=== PATIENT | female | born 1965 | race American Indian/Alaskan Native ===

== ENCOUNTER 2017-08-10 19:20 | Emergency (ER) | payer MEDICARE ==
[2017-08-10] MEDS ORDERED: ASPIRIN PO ONE (19:49)
[2017-08-10] MEDS ORDERED: ASPIRIN ONE (19:51)
[2017-08-10 20:11] LABS: Basophils % (Auto) 0.7 % (0.0-1.8); Eosinophils # (Auto) 0.4 K/mm3 (0.0-0.4); Eosinophils % (Auto) 7.5 % (0.0-4.3); Hematocrit 41.2 % (30.3-42.9); Hemoglobin 14.2 gm/dl (10.1-14.3); Lymphocytes # (Auto) 2.3 K/mm3 (1.2-5.4); Lymphocytes % (Auto) 38.5 % (13.4-35.0); Mean Corpuscular HGB Conc 34 % (30-34); Mean Corpuscular Hemoglobin 32 pg (28-32); Mean Corpuscular Volume 92 fl (79-97); Monocytes # (Auto) 0.5 K/mm3 (0.0-0.8); Monocytes % (Auto) 7.9 % (0.0-7.3); Platelet Count 283 K/mm3 (140-440); Red Blood Count 4.49 M/mm3 (3.65-5.03); Red Cell Distribution Width 12.8 % (13.2-15.2)
[2017-08-10 20:29] LABS: BUN/Creatinine Ratio 18; Blood Urea Nitrogen 11 mg/dL (7-17); Calcium 8.9 mg/dL (8.4-10.2); Hemolysis Index 14
--- NOTE | 2017-08-11 07:15 | Emergency Department Report ---
ED Chest Pain HPI - General Chief Complaint: Chest Pain Stated Complaint: CP; SOB Time Seen by Provider: 08/11/17 07:13 Source: patient Mode of arrival: Ambulatory Limitations: No Limitations - History of Present Illness Initial Comments: Patient stated that she had pain in her right chest and later pain in her left chest than essentially pain associated with cough and movement. Her pain is nonpleuritic. She is sleeping at the time of my exam and awoke without any chest discomfort. She states that she has been coughing phlegm of various colors from yellow to green light. She's had no hemoptysis. He does not complain of any leg pain or swelling. She's had no travel. She states her chest is sore when she moves. Patient has CPAP at night and history of asthma. She has been wheezing. She uses an inhaler. She denies nausea vomiting diaphoresis dizziness or any other symptom. She's had no recent fever or chills she complains of generalized aching "down to my feet". MD Complaint: chest pain -: days(s) Onset: during rest Pain Location: left chest, right chest Pain Radiation: none Severity: moderate Severity scale (0 -10): 6 Quality: aching Consistency: intermittent, now resolved Improves With: nothing Worsens With: movement Context: recent illness re: denies: nausea, vomting, diaphoresis, dyspnea (wheezing) Other Symptoms: cough. denies: fever, syncope, rash, acid taste in mouth, leg swelling, palpitations, burping Treatments Prior to Arrival: none Aspirin use within the Past 7 Days: (0) No - Related Data On Oral Contraceptives: No Previous Rx's Medication Instructions Recorded Last Taken Type Azithromycin [Zithromax Z-DUNG] 250 mg PO DAILY #6 tablet 08/11/17 Unknown Rx predniSONE [Deltasone] 40 mg PO QDAY #10 tab 08/11/17 Unknown Rx Allergies Allergy/AdvReac Type Severity Reaction Status Date / Time No Known Allergies Allergy Unverified 08/10/17 19:47 Heart Score - HEART Score History: Slightly suspicious EKG: Normal Age: < 45 Risk factors: 1-2 risk factors Troponin: < normal limit HEART Score: 1 ED Review of Systems ROS: Stated complaint: CP; SOB Other details as noted in HPI Constitutional: denies: chills, fever Eyes: denies: eye pain, eye discharge, vision change ENT: denies: ear pain, throat pain Respiratory: cough, wheezing. denies: shortness of breath Cardiovascular: chest pain. denies: palpitations Endocrine: no symptoms reported Gastrointestinal: denies: abdominal pain, nausea, diarrhea Genitourinary: denies: urgency, dysuria, discharge Musculoskeletal: denies: back pain, joint swelling, arthralgia Skin: denies: rash, lesions Neurological: denies: headache, weakness, paresthesias Psychiatric: denies: anxiety, depression Hematological/Lymphatic: denies: easy bleeding, easy bruising ED Past Medical Hx - Past Medical History Hx Hypertension: Yes Hx Arthritis: Yes Additional medical history: High cholesterol - Surgical History Past Surgical History?: Yes Additional Surgical History: Hysterectomy, - Social History Smoking Status: Current Every Day Smoker Substance Use Type: None - Medications Home Medications: Home Medications Medication Instructions Recorded Confirmed Last Taken Type Azithromycin [Zithromax Z-DUNG] 250 mg PO DAILY #6 tablet 08/11/17 Unknown Rx predniSONE [Deltasone] 40 mg PO QDAY #10 tab 08/11/17 Unknown Rx ED Physical Exam - General Limitations: No Limitations General appearance: alert, in no apparent distress - Head Head exam: Present: atraumatic, normocephalic - Eye Eye exam: Present: normal appearance, PERRL, EOMI. Absent: scleral icterus - ENT ENT exam: Present: mucous membranes moist - Neck Neck exam: Present: normal inspection. Absent: tenderness, meningismus - Respiratory Respiratory exam: Present: wheezes, chest wall tenderness. Absent: respiratory distress - Cardiovascular Cardiovascular Exam: Present: regular rate, normal rhythm. Absent: systolic murmur, diastolic murmur, rubs, gallop - GI/Abdominal GI/Abdominal exam: Present: soft, normal bowel sounds. Absent: distended, tenderness, guarding, rebound - Extremities Exam Extremities exam: Present: normal inspection - Back Exam Back exam: Present: normal inspection - Neurological Exam Neurological exam: Present: alert, oriented X3, CN II-XII intact. Absent: motor sensory deficit - Psychiatric Psychiatric exam: Present: normal affect, normal mood - Skin Skin exam: Present: warm, dry, intact, normal color. Absent: rash ED Course Vital Signs 08/10/17 08/10/17 08/11/17 19:30 19:41 05:55 Temperature 97.8 F 97.8 F Pulse Rate 70 70 Respiratory 20 18 18 Rate Blood Pressure 195/92 195/92 O2 Sat by Pulse 97 95 Oximetry 08/11/17 08/11/17 08/11/17 06:00 06:16 06:30 Temperature Pulse Rate 66 71 65 Respiratory 15 14 13 Rate Blood Pressure 160/82 160/82 150/73 O2 Sat by Pulse 93 94 93 Oximetry 08/11/17 08/11/17 08/11/17 06:46 07:00 07:34 Temperature 98.3 F Pulse Rate 69 69 Respiratory 12 14 Rate Blood Pressure 150/73 150/73 O2 Sat by Pulse 95 94 Oximetry - Reevaluation(s) Reevaluation #1: Patient responded well to med treatment lungs are clear. She feels ready for discharge. No chest pain this morning except on examination with pressure applied to eyes the right or the left chest. 08/11/17 09:07 KIMBER score - Kimber Score Age > 65: (0) No Aspirin use within the Past 7 Days: (0) No 3 or more CAD Risk Factors: (0) No 2 or more Angina events in past 24 hrs: (0) No Known CAD with more than 50% Stenosis: (0) No Elevated Cardiac Markers: (0) No ST Deviation Greater than 0.5mm: (0) No KIMBER Score: 0 ED Medical Decision Making - Lab Data Result diagrams: 08/10/17 19:52 08/10/17 19:52 Laboratory Results - last 24 hr 08/10/17 08/10/17 08/10/17 19:52 19:52 22:52 WBC 5.9 RBC 4.49 Hgb 14.2 Hct 41.2 MCV 92 MCH 32 MCHC 34 RDW 12.8 L Plt Count 283 Lymph % (Auto) 38.5 H Dewitt % (Auto) 7.9 H Eos % (Auto) 7.5 H Baso % (Auto) 0.7 Lymph # 2.3 Dewitt # 0.5 Eos # 0.4 Baso # 0.0 Seg Neutrophils % 45.4 Seg Neutrophils # 2.7 Sodium 142 Potassium 3.8 Chloride 103.7 Carbon Dioxide 27 Anion Gap 15 BUN 11 Creatinine 0.6 L Estimated GFR > 60 BUN/Creatinine Ratio 18 Glucose 112 H Calcium 8.9 Troponin T < 0.010 < 0.010 08/11/17 01:24 WBC RBC Hgb Hct MCV MCH MCHC RDW Plt Count Lymph % (Auto) Dewitt % (Auto) Eos % (Auto) Baso % (Auto) Lymph # Dewitt # Eos # Baso # Seg Neutrophils % Seg Neutrophils # Sodium Potassium Chloride Carbon Dioxide Anion Gap BUN Creatinine Estimated GFR BUN/Creatinine Ratio Glucose Calcium Troponin T < 0.010 - EKG Data -: EKG Interpreted by Me EKG shows normal: sinus rhythm, axis, intervals, QRS complexes Rate: normal - EKG Data When compared to previous EKG there are: previous EKG unavailable Interpretation: other (there are T wave inversions of 1 mm in the high lateral leads. Nonspecific change in the anterolateral leads. 2 seen in 3 and aVF possible left atrial abnormality and no evidence of acute ischemia) - Radiology Data interpreted by me: Chest x-ray showed no acute process Critical care attestation.: If time is entered above; I have spent that time in minutes in the direct care of this critically ill patient, excluding procedure time. ED Disposition Clinical Impression: Chest wall pain Acute bronchitis Qualifiers: Bronchitis organism: unspecified organism Qualified Code(s): J20.9 - Acute bronchitis, unspecified Exacerbation of asthma Qualifiers: Asthma severity: moderate Asthma persistence: unspecified Qualified Code(s): J45.901 - Unspecified asthma with (acute) exacerbation Disposition: - TO HOME OR SELFCARE Is pt being admited?: No Does the pt Need Aspirin: No Condition: Stable Instructions: Acute Bronchitis (ED), Chest Pain (ED), Asthma (ED) Additional Instructions: Follow-up with your primary care provider. Rx as directed. Return any persistent or unusual chest pain or chills or if you have any acute change or problems. Prescriptions: Azithromycin [Zithromax Z-DUNG] 250 mg PO DAILY #6 tablet predniSONE [Deltasone] 40 mg PO QDAY #10 tab Referrals: [facility] [Provider Group] - 2-3 Days PRIMARY CAREMD [Primary Care Provider] - 24 Hours Time of Disposition: 09:10
[2017-08-11] MEDS ORDERED: DUONEB *Not for PRN Use IH ONE (07:59)
[2017-08-11 10:14] VITALS: BP 167/82
--- NOTE | 2017-08-11 10:48 | XRay Report ---
AP CHEST: HISTORY: Cough AP view of the chest demonstrates a normal mediastinal and cardiac contour with clear lungs and normal bony and soft tissue structures. IMPRESSION: Unremarkable AP chest.
== END 2017-08-11 10:16 | disposition home or self-care (01) ==
LOC: ED 19:20
DX: J20.9 Acute bronchitis, unspecified (principal); R07.89 Other chest pain; I10 Essential (primary) hypertension; M19.90 Unspecified osteoarthritis, unspecified site; F17.200 Nicotine dependence, unspecified, uncomplicated; Z90.710 Acquired absence of both cervix and uterus
CPT/HCPCS: 36415; 71045; 80048; 84484; 85025; 93005; 93010; 94640